=== PATIENT | male | born 1940 | race Caucasian/White ===

== ENCOUNTER 2020-08-28 09:50 | Outpatient (CLI) | payer MEDICARE, OTHER ==
--- NOTE | 2020-08-28 11:37 | MRI ---
MRI cervical spine noncontrast: 08/28/2020 HISTORY: 80-year-old male with "M 47.812" cervical spondylosis. Dr. Mazariegos discussed the relevant findings by telephone with Jaden Sawant, optometrist/practice owner, at the office of Dr. Camacho at 11:27 AM 08/28/2020, with discussion regarding neurosurgical consultation for the cord compression. COMPARISON: None FINDINGS: Vertebral body heights are maintained. No major subluxation. No definite intramedullary signal abnorm ality. A hemangioma of bone at T3 vertebral body. C1-2: Soft tissue material around the atlantoodontoid junction encroaches upon the anterior aspect of the junction between the posterior fossa and upper spinal canal, causing mild central spinal canal stenosis, especially on the right side. 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 No contact with upper spinal cord or medulla. C2-3: Disc space maintained. No high-grade central spinal canal stenosis or high-grade neural foramin al stenosis. Minimal right facet DJD. Moderate to severe left facet DJD. Mild left neural foraminal stenosis. C3-4: Disc space maintained. Moderate to severe left facet DJD. No high-grade central spinal canal st enosis. Mild bilateral neural foraminal stenosis, left greater than right. Minimal right facet DJD. C4-5: Disc space maintained. Shallow, small central and bilateral paracentral disc protrusion or disc -osteophyte complex abuts ventral surface of spinal cord. Mild central spinal canal stenosis. Small bilateral uncinate process osteophytes. Mild to moderate bilateral neural foraminal stenosis. Minimal or mild bilateral facet DJD. C5-6: Moderate disc space narrowing with endplate irregularity and Modic type endplate changes. Moder ately large central and bilateral paracentral extruded disc herniation deeply indents the spinal cord, displacing it posteriorly against the thickened ligamentum flavum, causing flattening of the co rd in the AP dimension, and effacing CSF signal (severe central spinal canal stenosis.) Large bilateral uncinate process osteophytes cause severe bilateral neural foraminal stenosis. Mild to mode rate bilateral facet DJD. C6-7: Minimal disc space narrowing. Broad-based central and bilateral paracentral disc or disc-osteop hyte complex encroaches upon spinal canal. Thickened ligamentum flavum encroaches upon posterior aspect of spinal canal. Moderate to severe central spinal canal stenosis. Moderate sized right and la rge left uncinate process osteophytes. Severe bilateral neural foraminal stenosis, left worse than right. Moderate bilateral facet DJD. C7-T1: No central spinal canal stenosis. Moderate bilateral facet DJD. No high-grade neural foraminal stenosis. Incidentally, not included on the axial images but visualized only on the sagittal images, there is a right paracentral small focal disc herniation at T1-2. IMPRESSION: 1.) Significant cord compression at C5-6 due to a large disc extrusion contributing to very severe ce ntral spinal canal stenosis. Recommend neurosurgery consultation. 2) multilevel high-grade (including severe) neural foraminal stenosis.
== END 2020-08-28 09:51 | disposition home or self-care (01) ==
LOC: BICMRI 09:50
PROVIDERS: ATTEND Orthopaedic Surgery
DX: M47.812 Spondylosis without myelopathy or radiculopathy, cervical region (principal); M48.02 Spinal stenosis, cervical region; M50.222 Other cervical disc displacement at C5-C6 level; G95.20 Unspecified cord compression
CPT/HCPCS: 72141

== ENCOUNTER 2020-09-02 08:02 | Outpatient (CLI) | payer MEDICARE, OTHER ==
[2020-09-02 13:57] LABS: #Eosinphils 0.1 thou/uL (0.0-0.7); #Lymphocytes 1.5 thou/uL (1.20-3.40); #Monocytes 0.4 thou/uL (0.11-0.59); %Basophils 0.6 % (0.0-1.0); %Eosinophils 1.5 % (0.0-10.0); %Lymphocytes 30.1 % (21.0-51.0); %Monocytes 8.6 % (0.0-10.0); %Neutrophils 59.2 % (42.0-75.0); Hemoglobin 15.5 g/dL (14.0-18.0); Mean Corpuscular HGB CONC 34.9 g/dL (32.0-36.0); Mean Corpuscular Volume 94.6 fL (78.0-98.0); Platelet Count 190 thou/uL (130-400); Red Blood Cell (RBC) Count 4.69 mill/uL (4.70-6.10)
[2020-09-02 14:04] LABS: INR-International Normal Ratio 1.1
[2020-09-02 14:05] LABS: PTT 33.3 sec (22.9-36.1)
[2020-09-02 14:08] LABS: Anion Gap 12 mmol/L (10-20); BUN (Urea Nitrogen) 12 mg/dL (8.4-25.7); Calc. Creatinine Clearance 0 mL/min (70-130); Calcium 8.8 mg/dL (7.8-10.44); Carbon Dioxide 25 mmol/L (23-31); Chloride 106 mmol/L (98-107); Estimated GFR-MDRD 69; Glucose 179 mg/dL (83-110); Potassium 3.8 mmol/L (3.5-5.1); Sodium 139 mmol/L (136-145)
--- NOTE | 2020-09-03 09:05 | EKG ---
Test Reason : PREOP Blood Pressure : / mmHG Vent. Rate : 067 BPM Atrial Rate : 067 BPM P-R Int : 162 ms QRS Dur : 144 ms QT Int : 434 ms P-R-T Axes : 067 -21 047 degrees QTc Int : 458 ms Normal sinus rhythm Right bundle branch block Abnormal ECG Confirmed by DR. Princess WU ([id number]) on 09/03/2020 9:04:42 AM Referred By: Janee MONTAÑO Confirmed By:DR. Princess WU
[2020-09-03 12:04] LABS: SARS-CoV-2 MS2 Positive; SARS-CoV-2 N Gene Negative; SARS-CoV-2 S Gene Negative; SARS-CoV-2 by NAA Not Detected (NotDetected); SARS-CoV-2 orf1ab Negative
== END 2020-09-02 08:03 | disposition home or self-care (01) ==
LOC: LABBT 08:02
PROVIDERS: ATTEND Surgery
DX: Z01.818 Encounter for other preprocedural examination (principal); Z20.828 Contact with and (suspected) exposure to other viral communicable diseases; M54.12 Radiculopathy, cervical region; M48.02 Spinal stenosis, cervical region
CPT/HCPCS: 80048; 85025; 85610; 85730; 93005; U0003; 87635; 93010

== ENCOUNTER 2020-09-05 10:08 | Day surgery (SDC) | payer MEDICARE ==
[2020-09-04 14:10] VITALS: BMI 26.6
[2020-09-05] MEDS ORDERED: Thrombin 5000 UNITS/5 ML VIAL ONE (10:10)
[2020-09-05] MEDS ORDERED: Midazolam HCl 2 mg/2 ml Vial ONE (10:47)
[2020-09-05] MEDS ORDERED: Fentanyl 100 MCG/2 ML VIAL ONE ×4 (10:47→14:48)
[2020-09-05] MEDS ORDERED: Ondansetron PF 4 MG/2 ML Vial IVP PRN (11:19)
[2020-09-05] MEDS ORDERED: Acetaminophen 325 MG TAB PO PRN (11:19)
[2020-09-05] MEDS ORDERED: diphenhydrAMINE 25 MG CAP PO PRN (11:19)
[2020-09-05] MEDS ORDERED: traMADol HCl 50 MG TAB PO PRN (11:19)
[2020-09-05] MEDS ORDERED: Acetaminophen/Codeine 30-300mg Tablet PO PRN (11:19)
[2020-09-05] MEDS ORDERED: Promethazine HCl 25 MG/ML VIAL IM PRN ×2 (11:19→13:16)
[2020-09-05] MEDS ORDERED: tiZANidine HCl 4 MG TAB PO PRN (11:19)
[2020-09-05] MEDS ORDERED: Morphine 2 MG/ML VIAL SLOW IVP PRN (11:19)
[2020-09-05] MEDS ORDERED: Rocuronium Bromide 10 MG/ML (10ML VIAL) ONE (12:42)
[2020-09-05] MEDS ORDERED: PROPOFOL 200 MG/20 ML VIAL ONE (12:42)
[2020-09-05] MEDS ORDERED: Lidocaine 1% PF 5 ML VIAL ONE (12:42)
[2020-09-05] MEDS ORDERED: PHENYLEPHRINE-NS 100 MCG/ML 10 ML SYRINGE ONE (12:42)
[2020-09-05] MEDS ORDERED: Dexamethasone 20 MG/5 ML VIAL ONE (12:42)
[2020-09-05] MEDS ORDERED: Ketorolac Tromethamine 30 MG/ML VIAL ONE (12:42)
[2020-09-05] MEDS ORDERED: Glycopyrrolate 0.2 MG/ML 5 ML SYRINGE ONE (12:42)
[2020-09-05] MEDS ORDERED: Ondansetron PF 4 MG/2 ML Vial ONE (12:42)
[2020-09-05] MEDS ORDERED: Ondansetron HCl/PF 4 MG/2 ML Vial IVP PRN (13:16)
[2020-09-05] MEDS ORDERED: Promethazine HCl 25 MG/ML VIAL SLOW IVP PRN (13:16)
[2020-09-05] MEDS ORDERED: PACU-Morphine 4MG/ML VIAL SLOW IVP PRN (13:16)
[2020-09-05] MEDS ORDERED: Morphine 4 MG/ML VIAL ONE (14:25)
[2020-09-05] MEDS: HYDROcodone/Acetaminophen 7.5/325 mg Tablet PO PRN ×2 (16:27→22:15)
[2020-09-05] MEDS: Sodium Chloride 0.9% 1,000 ML IV SCH ×2 (16:45→22:17)
[2020-09-05] MEDS: CEFAZOLIN 2 GM in Premix Bag 1 BAG IVPB SCH (19:50)
[2020-09-06] MEDS: CEFAZOLIN 2 GM in Premix Bag 1 BAG IVPB SCH ×2 (03:21→10:08)
[2020-09-06] MEDS: HYDROcodone/Acetaminophen 7.5/325 mg Tablet PO PRN ×2 (03:30→11:03)
[2020-09-06 07:25] VITALS: BP 137/77; TEMP 98.2
[2020-09-06] MEDS ORDERED: Magnesium Oxide 250 MG TAB PO SCH (09:00)
[2020-09-06] MEDS ORDERED: Ascorbic Acid 500 mg Chewable Tablet PO SCH (09:00)
[2020-09-06] MEDS ORDERED: Zinc Sulfate 220 MG CAP PO SCH (09:00)
[2020-09-06] MEDS ORDERED: Metamucil PACK PO SCH (09:00)
[2020-09-06] MEDS ORDERED: Glucosamine Chondroitin Cap PO SCH (09:00)
[2020-09-06] MEDS ORDERED: Hydrochlorothiazide 25 MG TAB PO SCH (09:00)
[2020-09-06] MEDS ORDERED: Atorvastatin Calcium 10 MG TAB PO SCH (09:00)
--- NOTE | 2020-09-06 10:15 | PRG ---
DATE OF SERVICE: Mr. Aparicio is doing well on postoperative day 1. His myelopathy has already improved. He is going home. Job ID: [id number]
--- NOTE | 2020-09-06 11:44 | OP ---
DATE OF PROCEDURE: 09/05/2020 SENIOR ACCOUNTING MANAGER: Kaylen Arreola PA-C PREPROCEDURE DIAGNOSES: Cervical stenosis with myelopathy and radiculopathy. POSTPROCEDURE DIAGNOSIS: Cervical stenosis with myelopathy and radiculopathy. PROCEDURES PERFORMED: 1. Anterior C5-C6 and C6-C7 diskectomies for decompression of spinal cord and nerve roots. 2. Placement of interbody spacer, C5-C6 and C6-C7, packed with local bone autograft obtained from same incision of allograft for arthrodesis, C5-C6 and C6-C7 (spacer separate from plate). 3. Anterior cervical plate and screw fixation, C5, C6, and C7. 4. Use of operative microscope for microdissection. DESCRIPTION OF PROCEDURE: After informed consent was obtained from the patient, the patient was brought to the OR. Proper patient, pause, and identification were carried out. He was placed under excellent general endotracheal anesthesia and positioned supine on the OR table. All appropriate points were padded. A right anterior oblique tiffanie was drawn out, allowed for approach to the C5, C6, C7 segments. This region was sterilely cleansed, prepared, and draped. Proper patient, pause, and identification were carried out. The wound was then opened with a combination of sharp, monopolar, and blunt dissection. We proceeded lateral to the tracheoesophageal bundle and medial to the right carotid sheath. We identified the prevertebral layer of deep cervical fascia and longus colli muscles. These were swept laterally and distraction occurred. Localization film confirmed our area of interest. We then performed distraction at C5-C6 with a microscope for microdissection. Distraction occurred and diskectomy at C5-C6 was performed with excellent decompression of common dural tube, C6 nerve roots. The endplates were prepared. Interbody spacer with appropriate dimension packed with local bone autograft and allograft was placed at C5-C6 for the initiation of arthrodesis. This was separate from the plate. We then did the same thing at C6-C7 distraction and diskectomy at C6-C7. Decompression of spinal cord nerve roots and preparation of endplates. Interbody spacer packed with graft was again placed at C6-C7, separate from the plate. The microscope was then removed. Anterior cervical plate and screw fixation at C5, C6, and C7 then occurred with plate fixation and final tightening. Copious irrigation occurred throughout as did maximizing hemostasis. The wound was then closed in anatomic layers over a drain. The patient then emerged from anesthesia. Job ID: [id number]
== END 2020-09-06 14:00 | disposition home or self-care (01) ==
LOC: SDC 10:08 → SURG B 11:18 → SDC 09-06 14:00
PROVIDERS: ATTEND Surgery
PROC: 0RG20A0 Fusion of 2 or more Cervical Vertebral Joints with Interbody Fusion Device, Anterior Approach, Anterior Column, Open Approach (ICD-10-PCS; principal; 2020-09-05)
PROC: 0RG2070 Fusion of 2 or more Cervical Vertebral Joints with Autologous Tissue Substitute, Anterior Approach, Anterior Column, Open Approach (ICD-10-PCS; 2020-09-05)
PROC: 0RT30ZZ Resection of Cervical Vertebral Disc, Open Approach (ICD-10-PCS; 2020-09-05)
DX: M50.022 Cervical disc disorder at C5-C6 level with myelopathy (principal); M50.122 Cervical disc disorder at C5-C6 level with radiculopathy; M48.02 Spinal stenosis, cervical region; I10 Essential (primary) hypertension; E78.5 Hyperlipidemia, unspecified; F17.200 Nicotine dependence, unspecified, uncomplicated; Z79.899 Other long term (current) drug therapy
CPT/HCPCS: 20930; 20936; 22551; 22552; 22853 ×2; 76000; C1713 ×2; C1776; J0690; J1100; J1885; J2250; J2270; J2405; J2704; J3010

== ENCOUNTER 2020-09-06 22:36 | Emergency (ER) | payer MEDICARE ==
[2020-09-06 23:16] LABS: Bilirubin Negative (Negative); Blood, Urine Negative (Negative); Clarity Clear (Clear); Glucose, Urine (Dipstick) Normal (Negative); Ketone, Urine Negative (Negative); Leukocyte Negative Leu/uL (Negative); Nitrite Negative (Negative); Protein, Urine (Dipstick) Negative (Neg-Trace); Specific Gravity, Urine 1.011 (1.002-1.036); Urobilinogen Normal mg/dL (Less than 2)
== END 2020-09-07 00:22 | disposition home or self-care (01) ==
LOC: ERS 22:36
DX: R33.9 Retention of urine, unspecified (principal); E78.5 Hyperlipidemia, unspecified; I10 Essential (primary) hypertension; Z79.82 Long term (current) use of aspirin; Z79.899 Other long term (current) drug therapy
CPT/HCPCS: 51702; 81003; 87086

== ENCOUNTER 2022-11-01 14:14 | Inpatient (IN) | payer MEDICARE ==
[2022-11-01 15:07] LABS: #Eosinphils 0.1 thou/uL (0.0-0.7); #Lymphocytes 1.1 thou/uL (1.20-3.40); #Monocytes 0.9 thou/uL (0.11-0.59); #Neutrophils 5.6 thou/uL (1.40-6.50); %Basophils 0.6 % (0.0-1.0); %Eosinophils 1.4 % (0.0-10.0); %Lymphocytes 13.7 % (21.0-51.0); %Monocytes 11.5 % (0.0-10.0); %Neutrophils 72.8 % (42.0-75.0); Hemoglobin 14.9 g/dL (14.0-18.0); Mean Corpuscular HGB CONC 33.1 g/dL (32.0-36.0); Mean Corpuscular Hemoglobin 31.8 pg (27.0-31.0); Mean Platelet Volume 8.9 fL (7.4-10.4); Platelet Count 160 10x3/uL (130-400); RBC Distribution Width 11.2 % (11.5-14.5); Red Blood Cell (RBC) Count 4.69 mill/uL (4.70-6.10); White Blood Cell (WBC) Count 7.7 10x3/uL (4.8-10.8)
[2022-11-01 15:14] LABS: PTT 32.5 sec (22.9-36.1); Prothrombin Time 13.5 sec (12.0-14.7)
[2022-11-01 15:27] LABS: ALT (SGPT) 23 U/L (8-55); AST (SGOT) 24 U/L (5-34); Albumin 4.2 g/dL (3.4-4.8); Alkaline Phosphatase 62 U/L (40-110); Anion Gap 11 mmol/L (10-20); BUN (Urea Nitrogen) 16 mg/dL (8.4-25.7); Bilirubin, Total 0.5 mg/dL (0.2-1.2); Calc. Creatinine Clearance 0 mL/min (70-130); Calcium 9.2 mg/dL (7.8-10.44); Carbon Dioxide 28 mmol/L (23-31); Chloride 106 mmol/L (98-107); Estimated GFR 75; Globulin 2.3 g/dL (2.4-3.5); Glucose 114 mg/dL (83-110); Magnesium 2.1 mg/dL (1.6-2.6); Potassium 3.8 mmol/L (3.5-5.1); Protein, Total 6.5 g/dL (5.8-8.1); Sodium 141 mmol/L (136-145)
[2022-11-01 15:50] LABS: CKMB 4.4 ng/mL (0-6.6)
[2022-11-01] MEDS ORDERED: Aspirin Chewable 81 MG TAB ONE (15:59)
[2022-11-01] MEDS ORDERED: Enoxaparin Sodium 60 MG/0.6 ML SYRINGE ONE (16:16)
[2022-11-01] MEDS ORDERED: Nitroglycerin 0.4 MG TAB (25 Tab Bottle) SL PRN (20:37)
[2022-11-01] MEDS ORDERED: Ondansetron PF 4 MG/2 ML Vial IVP PRN (20:37)
[2022-11-01] MEDS ORDERED: Bisacodyl 5 MG TAB PO PRN (20:37)
[2022-11-01] MEDS ORDERED: Morphine 4 MG/ML VIAL SLOW IVP PRN (20:42)
[2022-11-01 21:37] LABS: Troponin I 2.452 ng/mL (< 0.028)
[2022-11-01 23:20] VITALS: BMI 24.0
[2022-11-02 05:27] LABS: #Eosinphils 0.2 thou/uL (0.0-0.7); #Lymphocytes 1.6 thou/uL (1.20-3.40); #Monocytes 0.7 thou/uL (0.11-0.59); #Neutrophils 3.4 thou/uL (1.40-6.50); %Basophils 0.7 % (0.0-1.0); %Eosinophils 4.1 % (0.0-10.0); %Monocytes 12.3 % (0.0-10.0); %Neutrophils 56.9 % (42.0-75.0); Hemoglobin 14.7 g/dL (14.0-18.0); Mean Corpuscular HGB CONC 33.9 g/dL (32.0-36.0); Mean Corpuscular Hemoglobin 32.5 pg (27.0-31.0); Mean Corpuscular Volume 95.8 fl (78.0-98.0); Mean Platelet Volume 9.3 fL (7.4-10.4); Platelet Count 157 10x3/uL (130-400); RBC Distribution Width 11.2 % (11.5-14.5); Red Blood Cell (RBC) Count 4.52 mill/uL (4.70-6.10)
[2022-11-02 05:46] LABS: Anion Gap 10 mmol/L (10-20); BUN (Urea Nitrogen) 20 mg/dL (8.4-25.7); Calc. Creatinine Clearance 60 mL/min (70-130); Calcium 9.3 mg/dL (7.8-10.44); Carbon Dioxide 29 mmol/L (23-31); Cardiac Risk 2.5 (Less than 4.5); Chloride 107 mmol/L (98-107); Cholesterol 131 mg/dl (< 200 Desired); Estimated GFR 85; Glucose 105 mg/dL (83-110); HDL Cholesterol 53 mg/dL (>60 Neg Risk); LDL Cholesterol, Calculated 59 mg/dL; Potassium 3.9 mmol/L (3.5-5.1); Sodium 142 mmol/L (136-145); Triglycerides 93 mg/dL (Less than 150)
[2022-11-02] MEDS: Fish Oil 1,000 MG CAP PO SCH (08:24)
[2022-11-02] MEDS: Aspirin 81 mg Enteric Coated Tablet PO SCH (08:24)
[2022-11-02] MEDS ORDERED: Lisinopril 10 MG TAB PO SCH (09:00)
[2022-11-02] MEDS: Acetaminophen 325 MG TAB PO PRN ×2 (11:38→22:27)
[2022-11-02] MEDS: Enoxaparin Sodium 60 MG/0.6 ML SYRINGE SC SCH ×2 (12:19→22:27)
[2022-11-02 12:56] LABS: CKMB 4.2 ng/mL (0-6.6)
[2022-11-02] MEDS ORDERED: Atorvastatin Calcium 10 MG TAB PO SCH (21:00)
[2022-11-02] MEDS: Metoprolol Tartrate 25 MG TAB PO SCH (22:27)
[2022-11-03] MEDS ORDERED: Lisinopril 5 MG TAB PO SCH (09:00)
[2022-11-03] MEDS: Aspirin 81 mg Enteric Coated Tablet PO SCH (09:59)
[2022-11-03] MEDS: Fish Oil 1,000 MG CAP PO SCH (09:59)
[2022-11-03] MEDS: Metoprolol Tartrate 25 MG TAB PO SCH (13:05)
[2022-11-03 16:25] VITALS: BP 135/66; TEMP 98.3
== END 2022-11-03 17:22 | disposition home or self-care (01) | DRG 282 ==
LOC: ERS 14:14 → 2SW 16:19 → OBSVTOIN 16:19
PROVIDERS: ADMIT Internal Medicine; ATTEND Internal Medicine
DX: I47.1 Supraventricular tachycardia (principal); I21.A1 Myocardial infarction type 2; Z20.822 Contact with and (suspected) exposure to COVID-19; E78.5 Hyperlipidemia, unspecified; Z98.1 Arthrodesis status; I12.9 Hypertensive chronic kidney disease with stage 1 through stage 4 chronic kidney disease, or unspecified chronic kidney disease; N18.2 Chronic kidney disease, stage 2 (mild); Z79.899 Other long term (current) drug therapy; Z79.82 Long term (current) use of aspirin
CPT/HCPCS: 36415; 71045; 78452; 80048; 80053; 80061; 82553; 83735; 83880; 84484; 85025; 85610; 85730; 93005; 93017; 93306; 96372; A9500; J1650; U0003; U0005

== ENCOUNTER 2023-03-10 08:58 | Outpatient (CLI) | payer MEDICARE ==
[2023-03-10 09:57] LABS: #Basophils 0.1 10x3/uL (0.0-0.2); #Eosinphils 0.1 10x3/uL (0.0-0.5); #Monocytes 0.7 10x3/uL (0.0-1.1); #Neutrophils 2.8 10x3/uL (1.5-8.4); %Basophils 1.3 % (0.0-2.0); %Eosinophils 2.6 % (0.0-6.0); %Lymphocytes 29.8 % (18.0-47.0); %Monocytes 13.4 % (0.0-10.0); %Neutrophils 52.7 % (40.0-75.0); Hemoglobin 15.3 g/dL (13.5-17.5); Mean Corpuscular HGB CONC 34.2 g/dL (32.0-36.0); Mean Corpuscular Volume 90.9 fl (81.2-95.1); Mean Platelet Volume 11.3 fl (7.4-10.4); Platelet Count 185 10x3/uL (150-450); RBC Distribution Width 11.9 % (11.5-14.5); Red Blood Cell (RBC) Count 4.93 10x6/uL (4.32-5.72); White Blood Cell (WBC) Count 5.3 10x3/uL (3.5-10.5)
== END 2023-03-10 08:59 | disposition home or self-care (01) ==
LOC: LABBT 08:58
PROVIDERS: ATTEND Orthopaedic Surgery Hand Surgery
DX: Z01.812 Encounter for preprocedural laboratory examination (principal); G56.02 Carpal tunnel syndrome, left upper limb
CPT/HCPCS: 85025; 93005; 93010

== ENCOUNTER 2023-03-12 10:16 | Day surgery (SDC) | payer MEDICARE ==
[2023-03-11 11:56] VITALS: BMI 23.6
[2023-03-12] MEDS ORDERED: Neomycin-Polymyxin 1 ML AMP ONE (12:10)
[2023-03-12] MEDS ORDERED: Bacitracin Zinc Ointment 30 gm TUBE ONE (12:10)
[2023-03-12] MEDS ORDERED: Bupivacaine PF 0.5% 30 ML VIAL ONE (12:10)
[2023-03-12] MEDS ORDERED: CEFAZOLIN 2 GM VIAL ONE (12:29)
[2023-03-12] MEDS ORDERED: Sodium Chloride 0.9% 100 ML ONE (12:29)
[2023-03-12] MEDS ORDERED: Ondansetron PF 4 MG/2 ML Vial ONE (12:40)
[2023-03-12] MEDS ORDERED: PROPOFOL 200 MG/20 ML VIAL ONE (12:40)
[2023-03-12] MEDS ORDERED: ePHEDrine Sulfate 50 MG/10 ML VIAL ONE (12:40)
[2023-03-12] MEDS ORDERED: Lidocaine 1% PF 5 ML VIAL ONE (12:40)
[2023-03-12] MEDS ORDERED: GLYCOPYRROLATE/PF 0.2 MG/ML VIAL ONE (12:40)
[2023-03-12] MEDS ORDERED: Dexamethasone 20 MG/5 ML VIAL ONE (12:40)
[2023-03-12] MEDS ORDERED: Ketorolac Tromethamine 30 MG/ML VIAL ONE (13:50)
== END 2023-03-12 15:15 | disposition home or self-care (01) ==
LOC: SDC 10:16
PROVIDERS: ATTEND Orthopaedic Surgery Hand Surgery
PROC: 01N50ZZ Release Median Nerve, Open Approach (ICD-10-PCS; principal; 2023-03-12)
DX: G56.03 Carpal tunnel syndrome, bilateral upper limbs (principal); M18.12 Unilateral primary osteoarthritis of first carpometacarpal joint, left hand; I10 Essential (primary) hypertension; E78.5 Hyperlipidemia, unspecified; K21.9 Gastro-esophageal reflux disease without esophagitis; N40.0 Benign prostatic hyperplasia without lower urinary tract symptoms; G89.29 Other chronic pain; G62.9 Polyneuropathy, unspecified; R73.03 Prediabetes; Z87.891 Personal history of nicotine dependence; Z79.82 Long term (current) use of aspirin; Z79.899 Other long term (current) drug therapy; Z98.1 Arthrodesis status
CPT/HCPCS: J1100; J1885; J2405; J2704; J3490; S0020

== ENCOUNTER 2024-10-31 16:58 | Inpatient (IN) | payer MEDICARE ==
[2024-10-31] MEDS ORDERED: Adenosine 6 mg (2 mL) VIAL ONE (17:11)
[2024-10-31 17:58] LABS: %Basophils 1.1 % (0.0-1.0); %Eosinophils 2.1 % (0.0-10.0); %Lymphocytes 26.1 % (21.0-51.0); %Monocytes 15.6 % (0.0-10.0); %Neutrophils 54.6 % (42.0-75.0); Hematocrit 49.4 % (42.0-52.0); Hemoglobin 17.1 g/dL (14.0-18.0); Mean Corpuscular HGB CONC 34.6 g/dL (32.0-36.0); Mean Corpuscular Hemoglobin 31.8 pg (27.0-31.0); Mean Corpuscular Volume 91.8 fL (78.0-98.0); Mean Platelet Volume 10.8 fL (7.4-10.4); Platelet Count 309 10x3/uL (130-400); RBC Distribution Width 12.5 % (11.5-14.5); Red Blood Cell (RBC) Count 5.38 mill/uL (4.70-6.10)
[2024-10-31] MEDS ORDERED: Metoprolol Succinate XL 25 MG ER.TAB PO SCH (18:15)
[2024-10-31 18:16] LABS: Troponin I 0.076 ng/mL (< 0.028)
[2024-10-31 18:24] LABS: ALT (SGPT) 19 U/L (8-55); AST (SGOT) 21 U/L (5-34); Albumin 4.5 g/dL (3.4-4.8); Alkaline Phosphatase 88 U/L (40-110); Anion Gap 15 mmol/L (10-20); BUN (Urea Nitrogen) 19 mg/dL (8.4-25.7); Bilirubin, Total 0.6 mg/dL (0.2-1.2); Calc. Creatinine Clearance 0 mL/min (70-130); Calcium 10.1 mg/dL (7.8-10.44); Carbon Dioxide 25 mmol/L (23-31); Chloride 107 mmol/L (98-107); Estimated GFR 73; Globulin 3.6 g/dL (2.4-3.5); Glucose 113 mg/dL (83-110); Potassium 3.6 mmol/L (3.5-5.1); Protein, Total 8.1 g/dL (5.8-8.1); Sodium 143 mmol/L (136-145)
[2024-10-31] MEDS ORDERED: Ondansetron PF 4 MG/2 ML Vial IVP PRN (18:55)
[2024-10-31] MEDS ORDERED: Gabapentin 300 MG CAP PO PRN (18:55)
[2024-10-31] MEDS ORDERED: Senokot S 8.6-50 MG TAB PO PRN (18:55)
[2024-10-31] MEDS ORDERED: Calcium Carbonate 500 MG ChewTAB PO PRN (18:55)
[2024-10-31] MEDS: Metoprolol Succinate XL 25 MG ER.TAB PO SCH (20:50)
[2024-10-31 21:17] LABS: Troponin I 0.075 ng/mL (< 0.028)
[2024-10-31] MEDS ORDERED: Atorvastatin Calcium 10 MG TAB ONE (21:25)
[2024-10-31] MEDS: Atorvastatin Calcium 10 MG TAB PO SCH (21:30)
[2024-10-31] MEDS ORDERED: Pantoprazole 40 MG DR.TAB ONE (21:37)
[2024-10-31] MEDS: Pantoprazole 40 MG DR.TAB PO SCH (21:46)
[2024-10-31 23:44] VITALS: BMI 26.1
[2024-11-01 01:13] LABS: Troponin I 0.092 ng/mL (< 0.028)
[2024-11-01 05:41] LABS: #Basophils 0.05 10x3/uL (0.0-0.2); %Basophils 0.8 % (0.0-1.0); %Eosinophils 2.7 % (0.0-10.0); %Lymphocytes 27.5 % (21.0-51.0); %Neutrophils 54.7 % (42.0-75.0); Hematocrit 39.9 % (42.0-52.0); Hemoglobin 13.8 g/dL (14.0-18.0); Mean Corpuscular HGB CONC 34.6 g/dL (32.0-36.0); Mean Corpuscular Hemoglobin 31.4 pg (27.0-31.0); Mean Corpuscular Volume 90.7 fL (78.0-98.0); Mean Platelet Volume 10.9 fL (7.4-10.4); Platelet Count 201 10x3/uL (130-400); RBC Distribution Width 12.3 % (11.5-14.5)
[2024-11-01 05:42] LABS: ALT (SGPT) 11 U/L (8-55); AST (SGOT) 15 U/L (5-34); Albumin 3.5 g/dL (3.4-4.8); Alkaline Phosphatase 68 U/L (40-110); Anion Gap 13 mmol/L (10-20); BUN (Urea Nitrogen) 15 mg/dL (8.4-25.7); Bilirubin, Total 0.6 mg/dL (0.2-1.2); Calc. Creatinine Clearance 74 mL/min (70-130); Calcium 8.5 mg/dL (7.8-10.44); Carbon Dioxide 23 mmol/L (23-31); Chloride 110 mmol/L (98-107); Estimated GFR 89; Globulin 2.4 g/dL (2.4-3.5); Glucose 114 mg/dL (83-110); Potassium 3.9 mmol/L (3.5-5.1); Protein, Total 5.9 g/dL (5.8-8.1); Sodium 142 mmol/L (136-145)
[2024-11-01] MEDS: Enoxaparin 40 MG (0.4 mL) SYRINGE SC SCH (09:19)
[2024-11-01] MEDS: Aspirin 81 mg Enteric Coated Tablet PO SCH (09:19)
[2024-11-01] MEDS: Metoprolol Succinate XL 50 MG ER.TAB PO SCH (09:19)
[2024-11-01] MEDS: Amlodipine 5 MG TAB PO SCH (09:19)
[2024-11-01] MEDS: Valsartan 80 MG TAB PO SCH (09:56)
[2024-11-01] MEDS: Acetaminophen 325 MG TAB PO PRN (13:00)
[2024-11-01] MEDS ORDERED: Heparin 10,000 UNITS/ 10 ML VIAL ONE (14:13)
[2024-11-01] MEDS ORDERED: fentaNYL 50 mcg/mL 1 mL Vial ONE (16:19)
[2024-11-01] MEDS ORDERED: Midazolam HCl 2 mg/2 ml Vial ONE ×2 (16:19→17:12)
[2024-11-01] MEDS: Metoprolol Succinate XL 25 MG ER.TAB PO SCH (21:23)
[2024-11-02] MEDS: Valsartan 80 MG TAB PO SCH (08:29)
[2024-11-02 12:36] VITALS: BP 149/67; TEMP 97.9
== END 2024-11-02 13:15 | disposition home or self-care (01) | DRG 274 ==
LOC: ERS 16:58 → ERHOLD 18:54 → OBS 22:02
PROVIDERS: ADMIT Internal Medicine; ATTEND Internal Medicine
PROC: 02583ZZ Destruction of Conduction Mechanism, Percutaneous Approach (ICD-10-PCS; principal; 2024-11-01)
PROC: 4A023FZ Measurement of Cardiac Rhythm, Percutaneous Approach (ICD-10-PCS; 2024-11-01)
DX: I47.19 Other supraventricular tachycardia (principal); I24.89 Other forms of acute ischemic heart disease; I45.2 Bifascicular block; E78.5 Hyperlipidemia, unspecified; I10 Essential (primary) hypertension; F10.90 Alcohol use, unspecified, uncomplicated; Z98.1 Arthrodesis status; Z79.82 Long term (current) use of aspirin; Z79.899 Other long term (current) drug therapy
CPT/HCPCS: 36415; 36416; 71045; 80048; 80053; 83735; 84484; 85025; 93005; 93010; 93623; 93653; 96374; 99152; 99153; C1730; C1732; C1760; C1894; C2630; J0153; J1644; J1650; J2250; J3010